=== PATIENT | male | born 1990 | race American Indian/Alaskan Native ===

== ENCOUNTER 2021-06-09 12:17 | Emergency (ER) | payer SELFPAY ==
[2021-06-09 15:25] LABS: Bilirubin,Urine NEG (Negative); Blood,Urine NEG (Negative); Color,Urine Yellow (Yellow); Mucus,Urine FEW /HPF; Urobilinogen,Urine < 2.0 mg/dL (<2.0)
--- NOTE | 2021-06-09 15:31 | Emergency Department Report ---
ED General Adult HPI - General Chief complaint: Medical Clearance Stated complaint: EVALUTION TO RETURN TO WORK Time Seen by Provider: 06/09/21 14:52 Source: patient Mode of arrival: Ambulatory Limitations: No Limitations - History of Present Illness Initial comments: pt is a 30 yo male who presents to the ED stating he needs medical clearance to return to work. Patient reports that he tested positive for COVID-19 on 05/29/2021. He reports that his job needed medical clearance for him to return to work. He states that he did take a second test and reports it was negative. He states his symptoms were dizziness, headache, body aches, chills, cough. He states all his symptoms have resolved except for cough with congestion. He denies any fever, vomiting, diarrhea, SOB, CP, vision changes, numbness, weakness. no pmhx. states he has not had a physical in over 2 years. - Related Data Previous Rx's Medication Instructions Recorded Last Taken Type Benzonatate [Tessalon Perles] 100 mg PO Q8HR PRN #12 cap 06/09/21 Unknown Rx amLODIPine 5 mg PO DAILY #30 tab 06/09/21 Unknown Rx guaiFENesin ER [Mucinex ER] 600 mg PO Q12H #14 tab 06/09/21 Unknown Rx hydroCHLOROthiazide [HCTZ] 12.5 mg PO QDAY #30 capsule 06/09/21 Unknown Rx Allergies Allergy/AdvReac Type Severity Reaction Status Date / Time No Known Allergies Allergy Verified 06/09/21 15:08 ED Review of Systems ROS: Stated complaint: EVALUTION TO RETURN TO WORK Other details as noted in HPI Comment: All other systems reviewed and negative ED Past Medical Hx - Past Medical History Previous Medical History?: No - Surgical History Past Surgical History?: No - Medications Home Medications: Home Medications Medication Instructions Recorded Confirmed Last Taken Type Benzonatate [Tessalon Perles] 100 mg PO Q8HR PRN #12 cap 06/09/21 Unknown Rx amLODIPine 5 mg PO DAILY #30 tab 06/09/21 Unknown Rx guaiFENesin ER [Mucinex ER] 600 mg PO Q12H #14 tab 06/09/21 Unknown Rx hydroCHLOROthiazide [HCTZ] 12.5 mg PO QDAY #30 capsule 06/09/21 Unknown Rx ED Physical Exam - General Limitations: No Limitations General appearance: alert, in no apparent distress - Head Head exam: Present: atraumatic, normocephalic - Eye Eye exam: Present: normal appearance - ENT ENT exam: Present: mucous membranes moist - Respiratory Respiratory exam: Present: rhonchi (bilaterally). Absent: respiratory distress, wheezes, rales, stridor, chest wall tenderness, accessory muscle use, decreased breath sounds, prolonged expiratory - Cardiovascular Cardiovascular Exam: Present: regular rate, normal rhythm, normal heart sounds. Absent: systolic murmur, diastolic murmur, rubs, gallop - Neurological Exam Neurological exam: Present: alert, oriented X3 - Psychiatric Psychiatric exam: Present: normal affect, normal mood - Skin Skin exam: Present: warm, dry, intact ED Course Vital Signs 06/09/21 06/09/21 06/09/21 14:45 15:32 16:58 Temperature 98.1 F 98.2 F Pulse Rate 70 66 Respiratory 16 18 Rate Blood Pressure 201/112 209/121 [Left] O2 Sat by Pulse 99 99 97 Oximetry 06/09/21 17:01 Temperature 98.0 F Pulse Rate 66 Respiratory 20 Rate Blood Pressure 190/113 [Left] O2 Sat by Pulse 97 Oximetry ED Medical Decision Making - Lab Data Result diagrams: 06/09/21 15:09 06/09/21 15:09 Lab Results 06/09/21 06/09/21 06/09/21 Range/Units 15:09 15:09 Unknown WBC 5.9 (4.5-11.0) K/mm3 RBC 5.60 H (3.65-5.03) M/mm3 Hgb 17.0 H (11.8-15.2) gm/dl Hct 50.3 H (35.5-45.6) % MCV 90 (84-94) fl MCH 30 (28-32) pg MCHC 34 (32-34) % RDW 13.9 (13.2-15.2) % Plt Count 290 (140-440) K/mm3 Lymph % (Auto) 39.3 H (13.4-35.0) % [place] % (Auto) 6.9 (0.0-7.3) % Eos % (Auto) 0.7 (0.0-4.3) % Baso % (Auto) 0.7 (0.0-1.8) % Lymph # (Auto) 2.3 (1.2-5.4) K/mm3 [place] # (Auto) 0.4 (0.0-0.8) K/mm3 Eos # (Auto) 0.0 (0.0-0.4) K/mm3 Baso # (Auto) 0.0 (0.0-0.1) K/mm3 Seg Neutrophils % 52.4 (40.0-70.0) % Seg Neutrophils # 3.1 (1.8-7.7) K/mm3 Sodium 141 (137-145) mmol/L Potassium 3.2 L (3.6-5.0) mmol/L Chloride 99.1 (98-107) mmol/L Carbon Dioxide 27 (22-30) mmol/L Anion Gap 18 mmol/L BUN 9 (9-20) mg/dL Creatinine 0.9 (0.8-1.3) mg/dL Estimated GFR > 60 ml/min BUN/Creatinine Ratio 10 % Glucose 102 H (75-100) mg/dL Calcium 9.5 (8.4-10.2) mg/dL Total Bilirubin 0.90 (0.1-1.2) mg/dL AST 24 (5-40) units/L ALT 53 (7-56) units/L Alkaline Phosphatase 105 (35-129) units/L Total Protein 7.9 (6.3-8.2) g/dL Albumin 4.5 (3.9-5) g/dL Albumin/Globulin Ratio 1.3 % Urine Color Yellow (Yellow) Urine Turbidity Clear (Clear) Urine pH 7.0 (5.0-7.0) Ur Specific [place] 1.017 (1.003-1.030) Urine Protein 30 mg/dl (Negative) mg/dL Urine Glucose (UA) Neg (Negative) mg/dL Urine Ketones Neg (Negative) mg/dL Urine Blood Neg (Negative) Urine Nitrite Neg (Negative) Urine Bilirubin Neg (Negative) Urine Urobilinogen < 2.0 (<2.0) mg/dL Ur Leukocyte Esterase Neg (Negative) Urine WBC (Auto) 3.0 (0.0-6.0) /HPF Urine RBC (Auto) 2.0 (0.0-6.0) /HPF U Epithel Cells (Auto) 1.0 (0-13.0) /HPF Urine Mucus Few /HPF Vital Signs 06/09/21 06/09/21 06/09/21 14:45 15:32 16:58 Temperature 98.1 F 98.2 F Pulse Rate 70 66 Respiratory 16 18 Rate Blood Pressure 201/112 209/121 [Left] O2 Sat by Pulse 99 99 97 Oximetry 06/09/21 17:01 Temperature 98.0 F Pulse Rate 66 Respiratory 20 Rate Blood Pressure 190/113 [Left] O2 Sat by Pulse 97 Oximetry - Radiology Data Radiology results: report reviewed Ordering Physician: TORI STANTON Date of Service: 06/09/21 Procedure(s): XR chest routine 2V Accession Number(s): [id number] cc: TORI STANTON Fluoro Time In Minutes: XR chest routine 2V INDICATION / CLINICAL INFORMATION: cough COMPARISON: None available. FINDINGS: SUPPORT DEVICES: None. HEART / MEDIASTINUM: No significant abnormality. LUNGS / PLEURA: Lungs are clear. Costophrenic sulci are sharp. No pneumothorax. ADDITIONAL FINDINGS: No significant additional findings. IMPRESSION: 1. No acute findings. Signer Name: Afshin Ramirez MD Signed: 06/09/2021 3:33 PM Workstation Name: [email or web address] Transcribed By: CHELSI Dictated By: Afshin Ramirez MD Electronically Authenticated By: Afshin Ramirez MD Signed Date/Time: 06/09/211532 DD/ 32 TD/TT: Print - Medical Decision Making pt is a 30 yo male who presents to the ED stating he needs medical clearance to return to work. Patient reports that he tested positive for COVID-19 on 05/29/2021. He reports that his job needed medical clearance for him to return to work. He states that he did take a second test and reports it was negative. He states his symptoms were dizziness, headache, body aches, chills, cough. He states all his symptoms have resolved except for cough with congestion. He denies any fever, vomiting, diarrhea, SOB, CP, vision changes, numbness, weakness. no pmhx. states he has not had a physical in over 2 years. vitals with elevated BP otherwise stable. pt is not having any symptoms related to his blood pressure at this time. given clonidine with mild improvement. labs with hypokalemia, given k-dur. UA with small amount of protein, otherwise normal. CXR: 1. No acute findings. Discussed all findings with patient. Patient will be started on blood pressure medication. Advised patient please take medication as prescribed. Increase your fluid intake. Eat a low-sodium diet. Incorporate 30 to 60 minutes of daily exercise. follow up with a primary care doctor for clearance for work. Return to emergency room for any new or worsening symptoms. Critical care attestation.: If time is entered above; I have spent that time in minutes in the direct care of this critically ill patient, excluding procedure time. ED Disposition Clinical Impression: Cough, COVID-19, Uncontrolled hypertension Disposition: HOME / SELF CARE / HOMELESS Is pt being admited?: No Does the pt Need Aspirin: No Condition: Stable Instructions: Hypertension (ED), Managing Your Hypertension, Low-Sodium Eating Plan Additional Instructions: please take medication as prescribed. Increase your fluid intake. Eat a low-s odium diet. Incorporate 30 to 60 minutes of daily exercise. follow up with a primary care doctor for clearance for work. Return to emergency room for any new or worsening symptoms. Prescriptions: amLODIPine 5 mg PO DAILY #30 tab hydroCHLOROthiazide [HCTZ] 12.5 mg PO QDAY #30 capsule guaiFENesin ER [Mucinex ER] 600 mg PO Q12H #14 tab Benzonatate [Tessalon Perles] 100 mg PO Q8HR PRN #12 cap PRN Reason: cough Referrals: WANDA BOYER MD [Staff Physician] - 3-[address] [facility] [Provider Group] - 3-5 Days Time of Disposition: 17:18 Print Language: GEORGIAN
[2021-06-09 15:38] LABS: Basophils % (Auto) 0.7 % (0.0-1.8); Eosinophils % (Auto) 0.7 % (0.0-4.3); Hematocrit 50.3 % (35.5-45.6); Lymphocytes # (Auto) 2.3 K/mm3 (1.2-5.4); Lymphocytes % (Auto) 39.3 % (13.4-35.0); Mean Corpuscular HGB Conc 34 % (32-34); Mean Corpuscular Volume 90 fl (84-94); Monocytes # (Auto) 0.4 K/mm3 (0.0-0.8); Monocytes % (Auto) 6.9 % (0.0-7.3); Platelet Count 290 K/mm3 (140-440); Red Cell Distribution Width 13.9 % (13.2-15.2)
--- NOTE | 2021-06-09 15:38 | XRay Report ---
XR chest routine 2V INDICATION / CLINICAL INFORMATION: cough COMPARISON: None available. FINDINGS: SUPPORT DEVICES: None. HEART / MEDIASTINUM: No significant abnormality. LUNGS / PLEURA: Lungs are clear. Costophrenic sulci are sharp. No pneumothorax. ADDITIONAL FINDINGS: No significant additional findings. IMPRESSION: 1. No acute findings. Signer Name: Afshin Ramirez MD Signed: 06/09/2021 3:33 PM Workstation Name: [email or web address]
[2021-06-09 15:52] LABS: Alanine Aminotransferase 53 units/L (7-56); Albumin 4.5 g/dL (3.9-5); BUN/Creatinine Ratio 10; Blood Urea Nitrogen 9 mg/dL (9-20); Calcium 9.5 mg/dL (8.4-10.2); Hemolysis Index 11
[2021-06-09] MEDS ORDERED: cloNIDine 0.1 MG TAB PO ONE (16:03)
[2021-06-09] MEDS ORDERED: POTASSIUM CHLORIDE ER 20 MEQ TAB PO ONE (16:20)
[2021-06-09 17:05] VITALS: BP 190/113
== END 2021-06-09 18:30 | disposition home or self-care (01) ==
LOC: ED 12:17
DX: U07.1 COVID-19 (principal); R05.9 Cough, unspecified; I10 Essential (primary) hypertension; Z79.899 Other long term (current) drug therapy
CPT/HCPCS: 36415; 71046; 80053; 81001; 85025; 99284